=== PATIENT | male | born 1975 | race African-American/Black ===

== ENCOUNTER 2021-09-01 05:26 | Emergency (ER) | payer SELFPAY ==
--- NOTE | 2021-09-01 05:54 | ED_ITS ---
HPI - Extremity Problem General Chief complaint: Skin/Abscess/Foreign Body Stated complaint: Shoulder pain Time Seen by Provider: 09/01/21 05:54 Source: patient Mode of arrival: ambulatory Limitations: no limitations History of Present Illness HPI Narrative: Patient was treated with for an infection outside of his scapula with bactrim. He developed an allergic reaction and was placed on Keflex and doxycycline but he never filled the prescription. MD Complaint: extremity pain Onset (ago): day(s) Pain Consistency: constant Location: left, upper extremity and other (scapula) Quality: sharp Exacerbating factors: range of motion and palpation Related Data Previous Rx's Medication Instructions Recorded cephalexin 500 mg capsule 500 mg PO QID 10 Days #40 cap 09/01/21 doxycycline monohydrate 100 mg 100 mg PO BID #20 cap 09/01/21 capsule naproxen 500 mg tablet (Naprosyn) 500 mg PO BID #20 tab 09/01/21 Allergies Allergy/AdvReac Type Severity Reaction Status Date / Time sulfamethoxazole Allergy Intermediate Angioedema Unverified 09/01/21 06:15 [From Bactrim] trimethoprim [From Bactrim] Allergy Intermediate Angioedema Unverified 09/01/21 06:15 Review of Systems Constitutional: Constitutional: Reports no additional constitutional complaints Eyes: Eyes: Reports no additional eye complaints ENT: Denies dizziness Cardiovascular: Cardiovascular: Reports no additional cardiovascular complaints Respiratory: Respiratory: Reports as per HPI Gastrointestinal: Gastrointestinal: Reports no additional gastrointestinal complaints Musculoskeletal: Musculoskeletal: Reports no additional musculoskeletal complaints Integumentary/Breasts: Skin/Breast: Denies rash Neurologic: Reports system reviewed and no additional complaints, except as documented, Denies dizziness and Denies Sensory deficit (Neuro) Psychiatric: Psychiatric: Denies anxiety [facility] Social History Social History Advance Directives: No Physical Exam Vital Signs: Vital Signs: Last Vital Signs Temp 98.6 F 09/01/21 06:09 Pulse 78 09/01/21 06:09 Resp 16 09/01/21 06:09 BP 114/63 09/01/21 06:09 Pulse Ox 99 09/01/21 06:09 BMI result Body Mass Index 23.5 Const: Other: chronically ill male looking older than stated age Nutritional Appearance: average body habitus Orientation/consciousness: oriented to person and patient oriented x3 Limitations: no limitations HEENT: Head: Yes normal to inspection Ears: external ears normal General nose exam: Normal external nose present Mouth: Normal oral and palatal mucosa present and oropharynx normal Throat: Yes posterior oropharynx normal Eyes: General: appearance normal, both eyes and all related structures Neck: Other: supple Neck: Yes normal visual inspection Chest: Chest palpation & inspection: normal inspection of the chest Resp: Auscultation: clear to auscultation bilaterally Cardio: Jugular venous distension: no JVD Rate: regular rate Rhythm: regular rhythm Heart sounds: S1 normal heart sound present and S2 normal heart sound present GI: Inspection: Yes normal to inspection Palpation (GI): Soft to palpation, nontender and No hepatosplenomegaly present Auscultation: normal bowel sounds Back/Spine/Pelvis: Other: left scapula area with tender lump, with erythema. About 6cm, firm, not fluctuant. Bedside ultrasound shows now fluid. Skin: General skin exam: no rashes or lesions noted Neuro: General: oriented to person and patient oriented x3 Cranial nerves: Yes CN's II-XII intact bilaterally Motor exam (neuro): 5/5 motor strength present throughout Sensory Exam: No Sensory deficit (Neuro) Extrem: General: Yes normal to inspection Psych: Appearance: grossly normal Course Reevaluation(s) Reevaluation #1: will start patient back on keflex and doxycycline and dc home Time: 06:14 Discharge Plan Discharge Clinical Impression: Cellulitis Patient Disposition: Home, Self-Care Instructions: Cellulitis (ED), Warm Compress or Soak (ED) Prescriptions: New cephalexin 500 mg capsule 500 mg PO QID 10 Days Qty: 40 0RF doxycycline monohydrate 100 mg capsule 100 mg PO BID Qty: 20 0RF naproxen [Naprosyn] 500 mg tablet 500 mg PO BID Qty: 20 0RF Referrals: Physician,Unknown J [Primary Care Provider] - 5 days
[2021-09-01 06:04] VITALS: BP 122/77; PULSE 91; RESP 14; TEMP 36.6; O2SAT 98; BMI 23.5
[2021-09-01 06:09] VITALS: BP 114/63; PULSE 78; RESP 16; TEMP 37; O2SAT 99
--- NOTE | 2021-09-01 06:42 | PC.NURSE ---
I attempted to discharge Sesar at this time. Upon entering room he asked which medicines he was receiving. I informed him that he was being administered Keflex, Toradol and Doxycycline. He insisted that he is allergic to Toradol and Keflex and refuses to take them. Sarbjit TRAVIS notified, awaiting DC.
[2021-09-01] MEDS: NaPROXEN 500 MG TABLET PO (07:20)
--- NOTE | 2021-09-01 07:31 | PC.NURSE ---
Pt abrupt during discharge, upset more wasnt done, pt informed this machine sign writer is oncoming rn and here to discharge pt. Pt c/o pain and Dr Schaffer notified and Naprosyn given as charted prior to d/c. Pt still unhappy, left d/c paperwork in room after leaving.
== END 2021-09-01 07:31 | disposition home or self-care (01) ==
PROVIDERS: Emergency Provider Emergency Medicine
DX: L03.114 Cellulitis of left upper limb (principal); Z88.2 Allergy status to sulfonamides
CPT/HCPCS: 96372; 99284